=== PATIENT | male | born 1940 | race Hispanic/Latino ===

== ENCOUNTER 2018-06-09 13:41 | Emergency (ER) | payer MEDICARE ==
[2018-06-09 13:52] VITALS: RESP 18; O2SAT 99
--- NOTE | 2018-06-09 14:07 | ED PDOC ---
Upper Extremity Pain/Injury Time Seen by Provider: 06/09/18 13:50 Chief Complaint (Nursing): Upper Extremity Problem/Injury Chief Complaint (Provider): Upper Extremity Problem/Injury History Per: Patient History/Exam Limitations: no limitations Onset/Duration Of Symptoms: Mins (just prior to arrival) Current Symptoms Are (Timing): Still Present Severity: Moderate Additional Complaint(s): 78 year old male with a past medical history of atrial fibrillation and hypertension (currently on anticoagulants) presents to the ED for an evaluation of a left upper extremity injury that occurred just prior to arrival. Patient reports that he was at work holding a heavy board, lost his balance and fell, landing on his right knee and left hand. Patient denies having pain to the right knee, but reports pain and a dislocation of the left fourth digit. Patient denies having any head injuries or any other complaints. 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 - Family History Family History: States: No Known Family Hx - Social History Drugs: Denies - Allergies Allergies/Adverse Reactions: Allergies Allergy/AdvReac Type Severity Reaction Status Date / Time No Known Allergies Allergy Verified 06/09/18 13:52 Review of Systems ROS Statement: Except As Marked, All Systems Reviewed And Found Negative Musculoskeletal: Positive for: Other (left 4th digit pain, (-) right knee pain) Physical Exam - Reviewed Nursing Documentation Reviewed: Yes Vital Signs Reviewed: Yes - Physical Exam Appears: Positive for: Well, Non-toxic, No Acute Distress Head Exam: Positive for: ATRAUMATIC, NORMOCEPHALIC Skin: Positive for: Normal Color, Warm, Dry Extremity: Positive for: Capillary Refill (<2 seconds ), Other (left hand 4th digit dislocation by PIP. Verbal consent obtained to reduce dislocation.) Neurologic/Psych: Positive for: Alert, Oriented (3x) - ECG O2 Sat by Pulse Oximetry: 99 (RA) Pulse Ox Interpretation: Normal - Progress ED Course And Treament: XRY OF HAND: NO OBVIOUS FX NOTED. PLACED IN FINGER SPLINT. F/U WITH HAND SURGEON THIS WEEK. Medical Decision Making Medical Decision Makin:50 Initial impression: 78 year old male with a left hand 4th digit dislocation Initial plan: * verbal consent obtained to reduce dislocation * XRay left 4th digit * reevaluation Tylenol offered to patient for pain, patient declined. Scribe Attestation: Documented byRoberta Crane, acting as a scribe for Simin Mesa PA-C. Provider Scribe Attestation: All medical record entries made by the Scribe were at my direction and personally dictated by me. I have reviewed the chart and agree that the record accurately reflects my personal performance of the history, physical exam, medical decision making, and the department course for this patient. I have also personally directed, reviewed, and agree with the discharge instructions and disposition. Disposition - Clinical Impression Clinical Impression: Dislocation, finger, interphalangeal joint - Patient ED Disposition Is Patient to be Admitted: No - Disposition Referrals: Jacqueline Bardales MD [Staff Provider] - Disposition: Routine/Home Disposition Time: 14:24 Condition: FAIR Instructions: Finger Dislocation (DC) Forms: [facility] ED School/Work Excuse
[2018-06-09 14:44] VITALS: BP 150/92; PULSE 85; TEMP 98
--- NOTE | 2018-06-09 15:48 | RAD ---
Date of service: 06/09/2018 PROCEDURE: Left ring finger radiographs. HISTORY: hand injury COMPARISON: None. TECHNIQUE: AP radiograph of the left hand, as well as spot oblique and lateral images of left ring finger were obtained. FINDINGS: LEFT RING FINGER: Left ring finger normal, without fracture of focal lesion. 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 No acute fracture. JOINTS: Normal. SOFT TISSUES: Normal. OTHER FINDINGS: None. IMPRESSION: No acute fracture. 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
== END 2018-06-09 14:44 | disposition home or self-care (01) ==
LOC: H.ER 13:41
DX: S63.275A Dislocation of unspecified interphalangeal joint of left ring finger, initial encounter (principal); W19.XXXA Unspecified fall, initial encounter; Y99.0 Civilian activity done for income or pay; I10 Essential (primary) hypertension; I48.91 Unspecified atrial fibrillation